=== PATIENT | female | born 1985 | race African-American/Black ===

== ENCOUNTER → 2016-11-20 | Outpatient (CLI) | payer OTHER ==
[~2016-11-20] MED LIST: MULTTAB67 PO; Z.0.NO CURRENT MEDS
== END ==
LOC: HPND 08:12
PROVIDERS: ATTEND Obstetrics & Gynecology
DX: O26.91 Pregnancy related conditions, unspecified, first trimester (principal); Z87.51 Personal history of pre-term labor; Z3A.12 12 weeks gestation of pregnancy
CPT/HCPCS: 76801

== ENCOUNTER → 2016-12-18 | Outpatient (CLI) | payer OTHER | LOC: HPND 08:39 | PROVIDERS: ATTEND Obstetrics & Gynecology | DX: O09.211 Supervision of pregnancy with history of pre-term labor, first trimester (principal) | CPT/HCPCS: 76815; 76817 ==

== ENCOUNTER → 2017-01-01 | Outpatient (CLI) | payer OTHER | LOC: HPND 08:30 | PROVIDERS: ATTEND Obstetrics & Gynecology | DX: O09.211 Supervision of pregnancy with history of pre-term labor, first trimester (principal); Z36 Encounter for antenatal screening of mother; Z3A.00 Weeks of gestation of pregnancy not specified | CPT/HCPCS: 76805; 76817 ==

== ENCOUNTER → 2017-01-16 | Outpatient (CLI) | payer OTHER | LOC: HPND 08:34 | PROVIDERS: ATTEND Obstetrics & Gynecology | DX: O09.212 Supervision of pregnancy with history of pre-term labor, second trimester (principal) | CPT/HCPCS: 76815; 76817 ==

== ENCOUNTER → 2017-01-30 | Outpatient (CLI) | payer OTHER | LOC: HPND 13:45 | PROVIDERS: ATTEND Obstetrics & Gynecology | DX: O09.212 Supervision of pregnancy with history of pre-term labor, second trimester (principal); Z36 Encounter for antenatal screening of mother; Z3A.00 Weeks of gestation of pregnancy not specified | CPT/HCPCS: 76816; 76817 ==

== ENCOUNTER 2017-03-07 12:54 | Observation (INO) | payer OTHER ==
[~2017-03-07] VITALS: Ht 160 cm; Wt 90.7 kg
[~2017-03-07 12:54] MED LIST changes: -MULTTAB67 PO
[2017-03-07] MEDS ORDERED: MULTTAB67 PO (14:28)
[2017-03-07 15:25] LABS: BACTERIA, URINE MOD /hpf; BLOOD, URINE NEG (NEG); COMMENT (UR) CULTURE INDICATED; CULTURE IF INDICATED CULTURE INDICATED; GLUCOSE,URINE NEG (NEG); KETONE, URINE NEG (NEG); NITRITE,URINE NEG (NEG); SQUAMOUS EPITHELIAL CELL URINE <1 /hpf (0-5); URINE COLOR LIGHT-YELLOW (YELLW/STRAW)
[2017-03-07 15:26] VITALS: TEMP 98
[2017-03-07 15:28] VITALS: RESP 17
[2017-03-07 15:29] VITALS: BP 117/52; PULSE 82
[2017-03-07] MEDS ORDERED: SODIUM CHLORIDE FLUSH PRN IV FLUSH (15:30)
[2017-03-07] MEDS: BETAMETHASONE SOD PHOS/ACETATE SUSP 30 MG/5 ML VIAL IM SCH (15:37)
[2017-03-07 15:39] LABS: AUTOMATED NEUTROPHIL # 8.1 TH/MM3 (1.8-7.7); BASOPHIL # 0.1 TH/MM3 (0-0.2); BASOPHIL % 0.6 % (0.0-2.0); EOSINOPHIL # 0.3 TH/MM3 (0-0.4); EOSINOPHIL % 2.3 % (0.0-4.0); HEMATOCRIT 33.7 % (35.0-46.0); HEMO FLAGS DIFF FINAL; LYMPH % 18.2 % (9.0-44.0); LYMPHOCYTE # 2.1 TH/MM3 (1.0-4.8); MEAN CELL VOLUME 88.3 FL (80.0-100.0); MEAN CORPUSCULAR HEMOGLOBIN 30.2 PG (27.0-34.0); MEAN CORPUSCULAR HGB CONC 34.2 % (32.0-36.0); MONO % 8.1 % (0.0-8.0); NEUT % 70.8 % (16.0-70.0); PLATELET COUNT 265 TH/MM3 (150-450); RED BLOOD COUNT 3.82 MIL/MM3 (4.00-5.30); RED CELL DISTRIBUTION WIDTH 14.5 % (11.6-17.2); WHITE BLOOD COUNT 11.5 TH/MM3 (4.0-11.0)
[2017-03-07 19:36] VITALS: BP 123/67; PULSE 89; RESP 16; TEMP 98.1
[2017-03-07] MEDS ORDERED: SODIUM CHLORIDE FLUSH BID IV FLUSH SCH (21:00)
[2017-03-07 21:49] VITALS: BP 125/55; PULSE 98
[2017-03-07 21:50] VITALS: RESP 16
[2017-03-08 07:31] VITALS: BP 120/56; PULSE 92
[2017-03-08 07:32] VITALS: RESP 17; TEMP 98
[2017-03-08 09:00] VITALS: RESP 18
[2017-03-08 10:00] VITALS: RESP 18
[2017-03-08 11:00] VITALS: RESP 18
[2017-03-08 11:42] VITALS: BP 121/68; PULSE 106; RESP 18; TEMP 97.5
--- NOTE | 2017-03-08 13:47 | HHI.HP ---
HPI Travel History International Travel<30 Days: No Contact w/Intl Traveler<30Days: No Known Affected Area: No History of Present Illness HPI 31 yo presents at 28 0/7 wks from OB diagnostics with funneling of cervix to the external os. pt c/o some cramping. complicated by hx of PTL at 25 wks with last . pt has been receiving weekly progesterone injections with this . +FM denies vaginal bleeding or LOF. History Past Medical History Medical History: Denies Significant Hx Obstetric History Obstetric History at 23 Past Surgical History Surgical History: No Previous Surgery Family History Family History: Negative Social History Alcohol Use: No Tobacco Use: No Substance Abuse: No Allergies-Medications (Allergen,Severity, Reaction): Coded Allergies: Penicillin (Verified Allergy, Intermediate, Swelling, 03/07/17) patients states she had swollen lips and itchy Home Meds Reported Medications Multiple Vitamin 1 Tab1 Tab PO BID Ref 0 03/07/17 Miscellaneous (No Current Meds) Misc 07/29/06 Review of Systems Except as stated in HPI: all other systems reviewed are Neg Physical Exam Vital Signs Date Time Temp Pulse Resp B/P Pulse Ox O2 Delivery O2 Flow Rate FiO2 03/08/17 11:42 97.5 18 03/08/17 11:42 106 121/68 03/08/17 11:00 18 03/08/17 10:00 18 03/08/17 09:00 18 03/08/17 07:32 98.0 17 03/08/17 07:31 92 120/56 03/07/17 21:50 16 03/07/17 21:49 98 125/55 03/07/17 19:36 89 123/67 03/07/17 19:36 98.1 16 03/07/17 15:29 82 117/52 03/07/17 15:28 17 03/07/17 15:26 98.0 Narrative GENERAL: Well-nourished, well-developed patient. SKIN: Warm and dry. HEAD: Normocephalic and atraumatic. EYES: No scleral icterus. No injection or drainage. ENT: No nasal drainage noted. Mucous membranes pink. Airway patent. NECK: Supple, trachea midline. No JVD. CARDIOVASCULAR: Regular rate and rhythm without murmurs, gallops, or rubs. RESPIRATORY: Breath sounds equal bilaterally. No accessory muscle use. BREASTS: Bilateral exam showed no masses , no retractions, no nipple discharge. ABDOMEN/GI: Abdomen soft, non-tender, bowel sounds present, no rebound, no guarding Gravid to 28 weeks size Fundal Height: [-] GENITOURINARY: External Genitalia: intact and normal in appearance BUS glands: [-] Cervix: [-] cl/soft FHT's: Category: [-] 1 EXTREMITIES: No cyanosis or edema. BACK: Nontender without obvious deformity. No CVA tenderness. NEUROLOGICAL: Awake and alert. Motor and sensory grossly within normal limits. Five out of 5 muscle strength in all muscle groups. Normal speech. Data Data Orders Diet Regular Basic (03/07/17 Lunch) Heart (03/07/17 14:47) Vital Signs (Adult) SHREE.Q4H (03/07/17 14:47) Activity Bed Rest With Brp (03/07/17 14:47) ^ Insert Iv (03/07/17 14:47) Urinalysis - C+S If Indicated (03/07/17 14:47) Specimen To Be Collected PRN (03/07/17 14:47) Complete Blood Count With Diff (03/07/17 14:47) Type And Screen (03/07/17 14:47) Betamethasone Inj ([place] Soluspan In (03/07/17 16:00) Sodium Chloride 0.9% Flush (Ns Flush) (03/07/17 21:00) Sodium Chloride 0.9% Flush (Ns Flush) (03/07/17 15:30) Urine Culture (03/07/17 14:40) Labs Laboratory Tests Test 03/07/17 03/07/17 14:40 15:05 Urine Color LIGHT-YELLOW Urine Turbidity CLEAR Urine pH 6.0 Urine Specific [place] 1.003 Urine Protein NEG Urine Glucose (UA) NEG Urine Ketones NEG Urine Occult Blood NEG Urine Nitrite NEG Urine Bilirubin NEG Urine Urobilinogen LESS THAN 2.0 Urine Leukocyte Esterase NEG Urine RBC LESS THAN 1 Urine WBC 2 Urine Squamous Epithelial <1 Cells Urine Bacteria MOD Microscopic Urinalysis Comment CULTURE INDICATED White Blood Count 11.5 Red Blood Count 3.82 Hemoglobin 11.5 Hematocrit 33.7 Mean Corpuscular Volume 88.3 Mean Corpuscular Hemoglobin 30.2 Mean Corpuscular Hemoglobin 34.2 Concent Red Cell Distribution Width 14.5 Platelet Count 265 Mean Platelet Volume 8.8 Neutrophils (%) (Auto) 70.8 Lymphocytes (%) (Auto) 18.2 Monocytes (%) (Auto) 8.1 Eosinophils (%) (Auto) 2.3 Basophils (%) (Auto) 0.6 Neutrophils # (Auto) 8.1 Lymphocytes # (Auto) 2.1 Monocytes # (Auto) 0.9 Eosinophils # (Auto) 0.3 Basophils # (Auto) 0.1 CBC Comment DIFF FINAL Differential Comment Blood Type O POSITIVE Antibody Screen NEGATIVE Blood Bank Comment Date/Time Procedure Status Source Growth 03/07/17 14:40 Urine Culture Received Urine Clean Catch Pending Assessment/Plan Problem List: (1) Cervical insufficiency during in third trimester, antepartum Plan: pt will be given steroids and monitored for contractions. if no cervical change will d/c home on continued bedrest. plan reviewed with pt, all questions answered Yonas Haque MD Mar 08, 2017 13:47
[2017-03-08] MEDS: BETAMETHASONE SOD PHOS/ACETATE SUSP 30 MG/5 ML VIAL IM SCH (15:46)
== END 2017-03-08 16:23 | disposition home or self-care (01) ==
LOC: HPND 12:54 → H2EA 14:01
PROVIDERS: ADMIT Obstetrics & Gynecology; ATTEND Obstetrics & Gynecology
DX: O34.33 Maternal care for cervical incompetence, third trimester (principal); Z3A.28 28 weeks gestation of pregnancy; Z87.51 Personal history of pre-term labor
CPT/HCPCS: 76816; 76817; 81001; 85025; 86850; 86900; 86901; 87086; G0378; J0702

== ENCOUNTER 2017-04-30 04:56 | Emergency (ER) | payer OTHER ==
[~2017-04-30 04:56] MED LIST changes: +MULTTAB67 PO
--- NOTE | 2017-04-30 05:36 | PD ---
HPI Chief Complaint contractions for 8 hours Date Seen: Apr 30, 2017 Time Seen: 05:20 Travel History International Travel<30 Days: No Contact w/Intl Traveler<30Days: No Known Affected Area: No History of Present Illness HPI Patient with previous at 25 weeks was worried with contractions all night 8 hours. She comes today for evaluation and previous cervical exam was 3 cm Weeks Gestation: 35 Para: 1 : 2 History Past Medical History Medical History: Denies Significant Hx Obstetric History Obstetric History x1 Past Surgical History Surgical History: No Previous Surgery Family History Family History: Negative Social History Alcohol Use: No Tobacco Use: No Substance Abuse: No Allergies-Medications (Allergen,Severity, Reaction): Coded Allergies: penicillin G (Unverified Allergy, Intermediate, Swelling, 04/23/17) patients states she had swollen lips and itchy Home Meds Reported Medications Multiple Vitamin (Multiple Vitamin) 1 Tab, 1 TAB PO BID for Nutritional Supplement, TAB 0 Refills 03/07/17 Miscellaneous (No Current Meds) [facility] [place] 07/29/06 Review of Systems Except as stated in HPI: all other systems reviewed are Neg Physical Exam Narrative GENERAL: Well-nourished, well-developed patient. SKIN: Warm and dry. HEAD: Normocephalic and atraumatic. EYES: No scleral icterus. No injection or drainage. ENT: No nasal drainage noted. Mucous membranes pink. Airway patent. NECK: Supple, trachea midline. No JVD. ABDOMEN/GI: Abdomen soft, non-tender, bowel sounds present, no rebound, no guarding Gravid to [-] weeks size Fundal Height: [-] GENITOURINARY: External Genitalia: intact and normal in appearance BUS glands: [-] Cervix: [-] Dilatation: 3 Effacement: 60 Station: -2 Presentation: [-] Membranes: [intact Uterine Contractions: few FHT's: Category: 1 Baseline: [-] Reactive: [-] Variability: [-] Decels: [-] EXTREMITIES: No cyanosis or edema. BACK: Nontender without obvious deformity. No CVA tenderness. NEUROLOGICAL: Awake and alert. Motor and sensory grossly within normal limits. Five out of 5 muscle strength in all muscle groups. Normal speech. Data Data Vital Signs Reviewed: Yes [facility] Medical Record Reviewed: Yes Interpretation(s) labor not changing, mild contractions Plan dc home after reactive NST Critical Care Time (mins): 20 Disposition: 01 DISCHARGE HOME Condition: Stable Referrals: Yonas Haque MD Patient Instructions: Abdominal Pain in (ED), Movement (ED), General Instructions, Labor (ED) Departure Forms: Tests/Procedures Hao Brady MD Apr 30, 2017 05:36
== END 2017-04-30 05:50 | disposition home or self-care (01) ==
LOC: HOBED 04:56
DX: O60.03 Preterm labor without delivery, third trimester (principal); Z3A.35 35 weeks gestation of pregnancy
CPT/HCPCS: 59025

== ENCOUNTER → 2017-05-06 | Outpatient (CLI) | payer OTHER | LOC: HPND 13:45 | PROVIDERS: ATTEND Obstetrics & Gynecology | DX: O36.5930 Maternal care for other known or suspected poor fetal growth, third trimester, not applicable or unspecified (principal); O34.33 Maternal care for cervical incompetence, third trimester; Z3A.36 36 weeks gestation of pregnancy | CPT/HCPCS: 76816 ==